=== PATIENT | male | born 2005 | race Two or more races ===

== ENCOUNTER 2024-12-25 08:53 | Emergency (ER) | payer SELFPAY ==
[~2024-12-25] VITALS: Ht 165.1 cm; Wt 62.8 kg
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
[2024-12-25] MEDS: HYDROcodone-ACET 5/325MG TAB PO ONE (10:03)
--- NOTE | 2024-12-25 10:12 | DVH ---
EXAM: XR Right Fingers, 2 or More Views CLINICAL INDICATION: Rule out fracture TECHNIQUE: Frontal, lateral and oblique views of the fingers of the right hand. COMPARISON: None FINDINGS: BONES/JOINTS: See below. SOFT TISSUES: Soft tissue swelling without acute fracture. No radiopaque foreign body. OTHER FINDINGS: . IMPRESSION: 1. Soft tissue swelling without acute fracture. 2. If symptoms persist, further evaluation with CT is recommended.
[2024-12-25] MEDS: BACITRACIN TOP OINT 1 UD PKG TOP ONE (12:06)
[2024-12-25 12:08] VITALS: BP 122/82; PULSE 89; RESP 16; TEMP 98.9; O2SAT 97
== END 2024-12-25 12:10 | disposition home or self-care (01) ==
LOC: ER 08:53
DX: S69.91XA Unspecified injury of right wrist, hand and finger(s), initial encounter (principal); R23.4 Changes in skin texture; M79.89 Other specified soft tissue disorders; F17.210 Nicotine dependence, cigarettes, uncomplicated; F12.90 Cannabis use, unspecified, uncomplicated; W23.0XXA Caught, crushed, jammed, or pinched between moving objects, initial encounter; Y93.89 Activity, other specified; Y92.89 Other specified places as the place of occurrence of the external cause; Y99.8 Other external cause status
CPT/HCPCS: 73140